=== PATIENT | female | born 1970 ===

== ENCOUNTER 2017-03-22 09:50 | Emergency (ER) | payer BC ==
[2017-03-22 10:06] VITALS: BMI 25.7
[2017-03-22 10:07] VITALS: BP 131/66; O2SAT 97
--- NOTE | 2017-03-22 10:25 | ED PDOC ---
HPI: General Adult Time Seen by Provider: 03/22/17 10:18 Chief Complaint (Nursing): Cough, Cold, Congestion Chief Complaint (Provider): flu like symptoms History Per: Patient Additional Complaint(s): 46-year-old female presents to emergency department with fever, chills, cough and body aches that started yesterday. She took Motrin yesterday which did not help fever. She denies any vomiting but has been nauseous. No abdominal pain or diarrhea. PMD: none Past Medical History Reviewed: Historical Data, Nursing Documentation, Vital Signs Vital Signs: Last Vital Signs Temp 102 F H 03/22/17 10:37 Pulse 114 H 03/22/17 10:06 Resp 20 03/22/17 10:06 BP 131/66 03/22/17 10:06 Pulse Ox 97 03/22/17 11:06 - Medical History PMH: No Chronic Diseases - Surgical History Other surgeries: tubal ligation - Family History Family History: States: No Known Family Hx - Living Arrangements Living Arrangements: With Family - Social History Current smoker - smoking cessation education provided: No Alcohol: None Drugs: Denies - Home Medications Home Medications: Ambulatory Orders Medication Instructions Recorded Albuterol HFA [Ventolin HFA 90 1 puff IH BID PRN #1 unit 12/04/15 mcg/actuation (8 g)] Methylprednisolone [Medrol] 4 mg PO TITR #1 unit 12/04/15 Promethazine/Phenyleph/Codeine 10 ml PO Q6H #200 syrup 12/04/15 [[id number] Syrup] Albuterol HFA [Ventolin HFA 90 1 puff IH ASDIR #1 unit 03/22/17 mcg/actuation (8 g)] Benzonatate 200 mg PO TID PRN #20 capsule 03/22/17 Oseltamivir Phosphate [Tamiflu] 75 mg PO BID #10 capsule 03/22/17 - Allergies Allergies/Adverse Reactions: Allergies Allergy/AdvReac Type Severity Reaction Status Date / Time No Known Allergies Allergy Verified 12/04/15 15:10 Review of Systems ROS Statement: Except As Marked, All Systems Reviewed And Found Negative Constitutional: Positive for: Fever, Chills, Other (body aches) ENT: Positive for: Nose Congestion Cardiovascular: Negative for: Chest Pain Respiratory: Positive for: Cough Gastrointestinal: Positive for: Nausea. Negative for: Vomiting, Abdominal Pain , Diarrhea Genitourinary Female: Negative for: Dysuria Neurological: Positive for: Headache Physical Exam - Reviewed Nursing Documentation Reviewed: Yes Vital Signs Reviewed: Yes - Physical Exam Appears: Positive for: Well, Non-toxic, No Acute Distress Skin: Negative for: Rash Eye Exam: Positive for: Normal appearance Cardiovascular/Chest: Positive for: Regular Rate, Rhythm Respiratory: Positive for: Normal Breath Sounds. Negative for: Wheezing, Respiratory Distress Gastrointestinal/Abdominal: Positive for: Soft. Negative for: Tenderness, Distended, Guarding, Rebound Neurologic/Psych: Positive for: Alert, Oriented - ECG O2 Sat by Pulse Oximetry: 97 Pulse Ox Interpretation: Normal Medical Decision Making Medical Decision Makin46 year old female with flu like symptoms Plan: PO tylenol and motrin Flu swab Patient refused CXR. Flu A is positive. Rx provided for Tamiflu, Tessalon Perles and Ventolin inhaler. Advised NSAIDs for fever control, fluids and rest. Patient was referred to clinic for follow- up. Disposition - Clinical Impression Clinical Impression: Influenza A - Patient ED Disposition Is Patient to be Admitted: No Counseled Patient/Family Regarding: Studies Performed, Diagnosis, Need For Followup, Rx Given - Disposition Referrals: Travis Torres MD [Staff Provider] - Disposition: Routine/Home Disposition Time: 12:10 Condition: STABLE Additional Instructions: Take prescription medications as directed. Alternate Tylenol every 4 hours and Motrin every 6 hours for fever control. Follow up with primary doctor in 2-3 days. Prescriptions: Albuterol HFA [Ventolin HFA 90 mcg/actuation (8 g)] 1 puff IH ASDIR #1 unit Benzonatate 200 mg PO TID PRN #20 capsule PRN Reason: Cough Oseltamivir Phosphate [Tamiflu] 75 mg PO BID #10 capsule Instructions: Influenza (ED) Forms: [employer] ([place]), [facility] ED School/Work Excuse
[2017-03-22 12:12] VITALS: PULSE 94; RESP 18; TEMP 99.2
== END 2017-03-22 12:23 | disposition home or self-care (01) ==
LOC: H.ER 09:50
DX: J11.1 Influenza due to unidentified influenza virus with other respiratory manifestations (principal)